=== PATIENT | male | born 2000 | race Caucasian/White ===

== ENCOUNTER 2022-12-15 18:47 | Emergency (ER) | payer SELFPAY ==
[~2022-12-15] VITALS: Ht 182.9 cm; Wt 65.8 kg
[2022-12-15 18:53] VITALS: BP 114/50
[2022-12-15] MEDS ORDERED: IBUPROFEN 400 MG TAB PO ONE (19:10)
[2022-12-15] MEDS ORDERED: IBUP-1842 PO (19:39)
--- NOTE | 2022-12-15 20:07 | NUR ---
urine taken to lab and logged
--- NOTE | 2022-12-15 20:09 | NUR ---
22 yo m bib self with c/c of on and off lower back pain x2 months. denies injuires. pt states pain is worse in the morning. reports increase of pain during urination. denies hx, rx and allergies
[2022-12-15 20:28] LABS: APPEARANCE,URINE CLEAR (CLEAR); BILIRUBIN,URINE NEGATIVE (NEGATIVE); BLOOD, URINE 1+ (NEGATIVE); COLOR,URINE STRAW (YELLOW); LEUKOCYTE ESTERASE ,URINE NEGATIVE (NEGATIVE); NITRITE, URINE NEGATIVE (NEGATIVE); UGLUCOSE NEGATIVE (NEGATIVE)
[2022-12-15 20:40] LABS: WBC,URINE NONE SEEN /HPF (0-5)
[2022-12-15 20:50] VITALS: BP 114/50
== END 2022-12-15 20:50 | disposition home or self-care (01) ==
LOC: MED 18:47
DX: M54.50 Low back pain, unspecified (principal)
CPT/HCPCS: 81001; 99283

== ENCOUNTER 2023-03-11 10:09 | Emergency (ER) | payer SELFPAY ==
[~2023-03-11] VITALS: Ht 175.3 cm; Wt 66.2 kg
[~2023-03-11 10:09] MED LIST: IBUP-1842 PO
--- NOTE | 2023-03-11 10:20 | NUR ---
PATIENT AMBULATED TO BED 6.
[2023-03-11 10:21] VITALS: BP 132/98
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
--- NOTE | 2023-03-11 10:53 | NUR ---
Radiology took patient for CT scan in wheelchair.
--- NOTE | 2023-03-11 10:53 | NUR ---
pt taken to ct via wheelchair
--- NOTE | 2023-03-11 10:58 | NUR ---
pt returned back from ct
[2023-03-11 11:43] VITALS: BP 132/98
--- NOTE | 2023-03-11 11:58 | NUR ---
Patient discharged with v/s stable. Written and verbal after care instructions given and explained. Patient verbalized understanding. Ambulatory with steady gait. All questions addressed prior to discharge. Advised to follow up with PMD.
== END 2023-03-11 11:43 | disposition home or self-care (01) ==
LOC: MED 10:09
DX: S01.01XA Laceration without foreign body of scalp, initial encounter (principal); F10.129 Alcohol abuse with intoxication, unspecified; Y90.9 Presence of alcohol in blood, level not specified; W18.30XA Fall on same level, unspecified, initial encounter; Y93.89 Activity, other specified; Y92.89 Other specified places as the place of occurrence of the external cause; Y99.8 Other external cause status
CPT/HCPCS: 70450; 90715; 99284

== ENCOUNTER 2024-03-16 21:18 | Inpatient (IN) | payer MEDICAID ==
[~2024-03-16] VITALS: Ht 170.2 cm; Wt 68.0 kg
[2024-03-16 21:26] VITALS: BP 108/62; PULSE 63; RESP 16; TEMP 96.9; O2SAT 100
[2024-03-16] MEDS: NACL 0.9% 1,000 ML IV ONE (21:36)
[2024-03-16 21:52] LABS: BASOPHILS # (AUTO) 0.1 K/uL (0.00-0.22); BASOPHILS % (AUTO) 0.4 % (0.0-2.0); EOSINOPHILS # (AUTO) 0.1 K/uL (0-0.4); EOSINOPHILS % (AUTO) 0.4 % (0.0-4.0); HEMATOCRIT 45.3 % (36-52); HEMOGLOBIN 15.3 g/dL (12.0-18.0); LYMPHOCYTES # (AUTO) 3.4 K/uL (2.0-11.5); MEAN CORPUSCULAR HEMOGLOBIN 32 pg (27-31); MEAN CORPUSCULAR HGB CONC 34 g/dL (33-37); MEAN CORPUSCULAR VOLUME 93.7 fL (80-94); MONOCYTES # (AUTO) 0.5 K/uL (0.8-1.0); MONOCYTES % (AUTO) 3.9 % (1.7-9.3); NEUTROPHILS # (AUTO) 9.5 K/uL (1.8-7.7); NEUTROPHILS % (AUTO) 70.3 % (42.2-75.2); PLATELET COUNT (AUTO) 393 K/uL (140-450); RED BLOOD CELL COUNT(AUTO) 4.84 MIL/uL (4.20-6.10); RED CELL DISTRIBUTION WIDTH 16.6 % (11.6-13.7); WHITE BLOOD COUNT (AUTO) 13.4 K/uL (4.8-10.8)
[2024-03-16 22:00] LABS: CALCIUM 8.5 mg/dL (8.5-10.1); CARBON DIOXIDE 23.6 mmol/L (21-32); CREATININE 1.1 mg/dL (0.6-1.3); POTASSIUM 3.6 mmol/L (3.5-5.1)
[2024-03-16] MEDS ORDERED: ONDANSETRON 4 MG/2 ML VIAL IVP PRN (23:10)
[2024-03-16] MEDS ORDERED: ACETAMINOPHEN 325 MG TAB PO PRN (23:10)
[2024-03-16] MEDS ORDERED: LORazepam 2 MG/ML VIAL IVP PRN (23:15)
[2024-03-16] MEDS: NACL 0.9% 1,000 ML IV SCH (23:47)
[2024-03-16] MEDS: HYDROcodone/APAP 5/325 MG 1 TAB TAB PO PRN (23:48)
[2024-03-17 00:10] VITALS: BP 122/84; PULSE 98; RESP 19; TEMP 98.8; O2SAT 97
[2024-03-17] MEDS: MORPHINE SULFATE 2 MG/ML SYR IVP PRN (02:00)
[2024-03-17 04:00] VITALS: BP 107/74; PULSE 93; RESP 18; TEMP 97.8; O2SAT 95
[2024-03-17 05:26] LABS: BASOPHILS % (AUTO) 0.1 % (0.0-2.0); HEMATOCRIT 39.4 % (36-52); HEMOGLOBIN 13.2 g/dL (12.0-18.0); LYMPHOCYTES % (AUTO) 6.8 % (20.5-51.1); MEAN CORPUSCULAR HEMOGLOBIN 31 pg (27-31); MEAN CORPUSCULAR HGB CONC 34 g/dL (33-37); MEAN CORPUSCULAR VOLUME 93.9 fL (80-94); MONOCYTES # (AUTO) 0.9 K/uL (0.8-1.0); MONOCYTES % (AUTO) 6.3 % (1.7-9.3); NEUTROPHILS # (AUTO) 12.8 K/uL (1.8-7.7); NEUTROPHILS % (AUTO) 86.8 % (42.2-75.2); PLATELET COUNT (AUTO) 331 K/uL (140-450); RED CELL DISTRIBUTION WIDTH 16.5 % (11.6-13.7); WHITE BLOOD COUNT (AUTO) 14.7 K/uL (4.8-10.8)
[2024-03-17 05:53] LABS: ANION GAP 16.8 (8-16); CALCIUM 7.7 mg/dL (8.5-10.1); CARBON DIOXIDE 23.9 mmol/L (21-32); CREATININE 0.8 mg/dL (0.6-1.3); POTASSIUM 3.7 mmol/L (3.5-5.1)
[2024-03-17 08:00] VITALS: BP 118/84; PULSE 84; RESP 18; RESP 19; TEMP 98.5; O2SAT 99
[2024-03-17] MEDS: FOLIC ACID 1 MG TAB PO SCH (09:58)
[2024-03-17] MEDS: THIAMINE 100 MG TAB PO SCH (09:58)
[2024-03-17] MEDS: PYRIDOXINE 50 MG TAB PO SCH (09:59)
[2024-03-17] MEDS: chlordiazePOXIDE 25 MG CAP PO SCH (10:00)
[2024-03-17] MEDS: ENOXAPARIN 40 MG/0.4 ML SYR SUBQ SCH (10:03)
[2024-03-17 16:00] VITALS: BP 131/74; PULSE 74; RESP 18; TEMP 98.9; O2SAT 100
[2024-03-17 19:22] VITALS: PULSE 83; RESP 18; O2SAT 100
[2024-03-17] MEDS: ALBUTEROL 0.083% 2.5 MG/3 ML NEBU INH PRN (19:22)
[2024-03-17 20:00] VITALS: BP 120/79; PULSE 79; RESP 18; RESP 20; TEMP 98.6; O2SAT 100; O2SAT 99
[2024-03-18 04:00] VITALS: BP 116/89; PULSE 76; RESP 17; TEMP 98.2; O2SAT 100
[2024-03-18 11:18] VITALS: RESP 17; O2SAT 100
[2024-03-18 12:00] VITALS: BP 114/74; PULSE 81; RESP 17; TEMP 98.4; O2SAT 100
== END 2024-03-18 19:00 | disposition home or self-care (01) | DRG 135 ==
LOC: MED 21:18 → MMU 23:12
PROVIDERS: ADMIT Family Medicine; ATTEND Family Medicine
DX: S27.0XXA Traumatic pneumothorax, initial encounter (principal); J96.90 Respiratory failure, unspecified, unspecified whether with hypoxia or hypercapnia; R65.10 Systemic inflammatory response syndrome (SIRS) of non-infectious origin without acute organ dysfunction; Z79.899 Other long term (current) drug therapy; W19.XXXA Unspecified fall, initial encounter; Y93.89 Activity, other specified; Y92.89 Other specified places as the place of occurrence of the external cause; Y99.8 Other external cause status
CPT/HCPCS: 36415; 70450; 71045; 71260; 80048; 85025; 87081; 94640; 96360; 99285; G0482; J1650; J2270; J7613; Q0092; Q9967